=== PATIENT | female | born 1945 | race Caucasian/White ===

== ENCOUNTER → 2016-11-28 | Outpatient (CLI) | payer MEDICARE ==
[~2016-11-28] MED LIST: ADVAIR 100-501 EACH INH; ALPRAZOLAM0.5 MG PO; ATORVASTATIN CA20 MG PO; COMBIVENT0.074 GM/I INH; COREG 3.125M3.125 MG PO; ENALAPRIL MALEAT5 MG PO; FLEXERIL 10 MG10 MG PO; METOPROLOL SUCC50 MG PO; NITROGLYCERIN0.4 MG SL; NORCO 10-325 T1 EACH PO; NORCO 7.5-3251 EACH PO; PAROXETINE HCL20 MG PO; PAXIL10 MG PO; PRAVASTATIN SOD10 MG PO; PROCHLORPERAZIN10 MG PO; PROMETHAZINE12.5 M1 PO; SPIRIVA18 MCG INH; TRIAMCINOLONE A15 GM TP; XARELTO20 MG PO
== END ==
LOC: OPSV 08:21 → CT 11:00
DX: C34.12 Malignant neoplasm of upper lobe, left bronchus or lung (principal); R91.1 Solitary pulmonary nodule; R22.2 Localized swelling, mass and lump, trunk; C77.1 Secondary and unspecified malignant neoplasm of intrathoracic lymph nodes; E86.0 Dehydration; D64.9 Anemia, unspecified
CPT/HCPCS: 36415; 71260; 82565; 84520; 96360; 96361; J1642; J7030; J7050; Q9962